=== PATIENT | female | born 1940 | race Caucasian/White ===

== ENCOUNTER 2018-11-01 09:09 | Day surgery (SDC) | payer OTHER ==
[2018-11-01] MEDS: PHENYLephrine 2.5% 15 ML OPH OPER (09:59)
[2018-11-01] MEDS: CYCLOPENTOLATE 1% 2 ML OPH OPER (09:59)
[2018-11-01] MEDS: MOXIFLOXACIN 0.5% 3 ML OPH OPER (09:59)
[2018-11-01] MEDS: TROPICAMIDE 1% 15 ML OPH OPER (10:00)
[2018-11-01] MEDS ORDERED: LACTATED RINGER'S 1,000 ML IV (10:00)
[2018-11-01] MEDS ORDERED: TIMOLOL 0.5% 5 ML OPH (11:13)
[2018-11-01] MEDS ORDERED: EPINEPHrine 1 MG INJ (11:14)
[2018-11-01] MEDS ORDERED: MIDAZOLAM 1 MG/ML 2 ML INJ (11:31)
[2018-11-01] MEDS ORDERED: FENTAnyl 50 MCG/ML VIAL (11:34)
[2018-11-01] MEDS ORDERED: TRYPAN BLUE 0.5 ML SYG IO (11:46)
[2018-11-01] MEDS: TETRACAINE 0.5% 4 ML OPH (11:59)
[2018-11-01] MEDS: LIDOCAINE 1% (MPF) 5 ML VIAL (11:59)
[2018-11-01] MEDS ORDERED: hydrALAzine 20 MG INJ IV (12:00)
[2018-11-01] MEDS: TIMOLOL 0.5% 5 ML OPH RIGHT EYE (12:00)
[2018-11-01] MEDS: TOBRAMYCIN/DEXAMETH 3.5 GM OPH OINT (12:00)
[2018-11-01] MEDS ORDERED: FENTAnyl 50 MCG/ML VIAL IV ×2 (12:00)
[2018-11-01] MEDS ORDERED: LABETALOL HCL 20MG INJ IV (12:00)
[2018-11-01] MEDS ORDERED: HYDROmorphONE 1 MG/5 ML IV SYRINGE IV ×2 (12:00)
== END 2018-11-01 13:25 | disposition home or self-care (01) ==
LOC: SDS 09:09
DX: H25.11 Age-related nuclear cataract, right eye (principal); I10 Essential (primary) hypertension; E11.9 Type 2 diabetes mellitus without complications; E03.9 Hypothyroidism, unspecified
CPT/HCPCS: 66984; 82962; 93005